=== PATIENT | female | born 1955 | race African-American/Black ===

== ENCOUNTER 2019-11-25 07:39 | Inpatient (IN) | payer MEDICAID ==
[~2019-11-25] VITALS: Ht 172.7 cm; Wt 100.5 kg
[2019-11-25] MEDS ORDERED: ONDANSETRON HCL 4MG/2ML INJ IV STA (08:16)
[2019-11-25] MEDS ORDERED: MORPHINE SULFATE 4 MG/ML CPJ (NOT FOR IM USE) IV STA (08:16)
[2019-11-25] MEDS ORDERED: SODIUM CHLORIDE 0.9% 1,000 ML IV ONE (08:16)
[2019-11-25] MEDS ORDERED: HYDRALAZINE 20MG/ML VIAL IV ONE (08:30)
[2019-11-25 09:03] LABS: BASOPHILS % 1.1 % (0.0-2.0); EOSINOPHILS % 0.8 % (0.0-5.0); HEMATOCRIT. 41.4 % (36.0-48.0); HEMOGLOBIN. 13.6 g/dL (12.0-16.0); LYMPHOCYTES % 26.3 % (20.0-50.0); MEAN CORPUSCULAR HEMOGLOBIN 28.7 pg (28.0-32.0); MEAN CORPUSCULAR VOLUME 87.9 fL (81.0-99.0); MEAN PLATELET VOLUME 8.8 fl (7.4-10.4); MONOCYTES % 3.5 % (2.0-8.0); NEUTROPHILS % 68.3 % (40.0-76.0); PLATELET 367 x1000/uL (130-400); RED BLOOD CELL COUNT 4.72 mill/uL (4.2-5.4); RED CELL DISTRIBUTION WIDTH 15.8 % (11.6-14.6)
[2019-11-25 09:09] LABS: CHLORIDE 113 mEq/L (98-107)
[2019-11-25 09:14] LABS: PARTIAL THROMBOPLASTIN TIME 23.6 sec (23.4-31.0); PROTHROMBIN TIME 10.6 sec (9.6-11.0)
[2019-11-25] MEDS ORDERED: CEFTRIAXONE 1 G PREMIX 50 ML IV ONE (09:30)
[2019-11-25] MEDS ORDERED: AZITHROMYCIN 500 MG in DEXT 5% WATER 250 ML IV ONE (09:30)
[2019-11-25 10:51] LABS: CLARITY URINE CLEAR (CLEAR); COLOR URINE YELLOW (YELLOW); KETONES URINE NEGATIVE (NEGATIVE); LEUKOCYTE ESTERASE URINE TRACE (NEGATIVE); NITRITE URINE NEGATIVE (NEGATIVE); OCCULT BLOOD URINE TRACE (NEGATIVE); PROTEIN URINE 1+ (NEGATIVE); SPECIFIC GRAVITY URINE 1.014 (1.005-1.030); UROBILINOGEN URINE 0.2 E.U./dL (0.2-1.0)
[2019-11-25 11:30] VITALS: BP 179/81
[2019-11-25 12:00] VITALS: BP 179/81
[2019-11-25] MEDS ORDERED: HYDR-3280 MT (13:46)
[2019-11-25] MEDS ORDERED: ATOR10TA69 MT (13:46)
[2019-11-25] MEDS ORDERED: FURO20TA4 MT (13:46)
[2019-11-25] MEDS: KETOROLAC 15MG/ML VIAL IV SCH ×3 (14:10→18:50)
[2019-11-25] MEDS ORDERED: ACETAMINOPHEN 325MG TABLET PO PRN ×2 (15:15)
[2019-11-25] MEDS ORDERED: GUAIFENESIN 200MG/10ML SUGAR FREE UDC PO PRN (15:15)
[2019-11-25] MEDS ORDERED: LORAZEPAM 0.5MG TABLET PO PRN (15:15)
[2019-11-25] MEDS ORDERED: DOCUSATE SODIUM 100MG CAPSULE PO PRN (15:15)
[2019-11-25] MEDS ORDERED: IPRATROPIUM/ALBUTEROL 0.5-3(2.5)MG/3ML NEB HHN PRN (15:15)
[2019-11-25 16:00] VITALS: BP 112/76
[2019-11-25] MEDS: AMLODIPINE 5MG TABLET PO SCH ×2 (16:05→20:48)
[2019-11-25] MEDS: CEFTRIAXONE 1,000 MG in DEXTROSE 5% WATER 50 ML IV SCH (16:05)
[2019-11-25] MEDS: HYDROCODONE/ACETAMINOPHEN 5/325MG TABLET PO PRN ×2 (16:35→20:59)
[2019-11-25] MEDS ORDERED: CEFTRIAXONE 1 G PREMIX 50 ML IV SCH (17:00)
[2019-11-25 20:00] VITALS: BP 208/79
[2019-11-25] MEDS: ATORVASTATIN CALCIUM 10MG TABLET PO SCH (20:06)
[2019-11-25] MEDS: ONDANSETRON HCL 4MG/2ML INJ IV PRN (20:36)
[2019-11-25] MEDS: CLONIDINE 0.1MG TABLET PO PRN (20:48)
[2019-11-26] VITALS: BP 131/71
[2019-11-26] MEDS: KETOROLAC 15MG/ML VIAL IV SCH ×4 (00:19→19:03)
[2019-11-26] MEDS: HYDROCODONE/ACETAMINOPHEN 5/325MG TABLET PO PRN ×3 (01:15→21:55)
[2019-11-26 04:00] VITALS: BP 125/71
[2019-11-26] MEDS: ONDANSETRON HCL 4MG/2ML INJ IV PRN (04:18)
[2019-11-26 06:28] LABS: BASOPHILS % 0.8 % (0.0-2.0); EOSINOPHILS % 0.3 % (0.0-5.0); HEMATOCRIT. 39.4 % (36.0-48.0); HEMOGLOBIN. 12.9 g/dL (12.0-16.0); LYMPHOCYTES % 42.1 % (20.0-50.0); MEAN CORPUSCULAR HEMOGLOBIN 28.8 pg (28.0-32.0); MEAN CORPUSCULAR VOLUME 88.4 fL (81.0-99.0); MEAN PLATELET VOLUME 9.4 fl (7.4-10.4); MONOCYTES % 8.3 % (2.0-8.0); NEUTROPHILS % 48.5 % (40.0-76.0); PLATELET 343 x1000/uL (130-400); RED BLOOD CELL COUNT 4.46 mill/uL (4.2-5.4); RED CELL DISTRIBUTION WIDTH 15.8 % (11.6-14.6)
[2019-11-26 08:00] VITALS: BP 119/67
[2019-11-26] MEDS: AMLODIPINE 5MG TABLET PO SCH ×2 (08:40→21:55)
[2019-11-26] MEDS ORDERED: LIDOCAINE HCL/EPINEPHRINE 1%-EPI 1:100,000 20 ML VIAL ONE (10:58)
[2019-11-26 12:00] VITALS: BP 128/68
[2019-11-26] MEDS ORDERED: PROPOFOL 200MG/20ML VIAL IV ONE (12:05)
[2019-11-26] MEDS ORDERED: FENTANYL CITRATE/PF 50MCG/ML 2ML VIAL ONE (12:05)
[2019-11-26] MEDS ORDERED: MIDAZOLAM HCL 2 MG/2 ML VIAL ONE (12:05)
[2019-11-26] MEDS ORDERED: ONDANSETRON HCL 4MG/2ML INJ ONE (12:42)
[2019-11-26] MEDS ORDERED: LIDOCAINE HCL 1% 20ML VIAL (Pyxis) INJ ONE (12:42)
[2019-11-26] MEDS ORDERED: METOCLOPRAMIDE HCL 10MG/2ML VIAL ONE (12:42)
[2019-11-26] MEDS ORDERED: DEXAMETHASONE 4MG/ML 1ML VIAL ONE (12:44)
[2019-11-26] MEDS: HYDROMORPHONE HCL/PF 2MG/ML CPJ IV PRN ×2 (13:45→16:38)
[2019-11-26] MEDS ORDERED: ONDANSETRON HCL 4MG/2ML INJ IV PRN (13:45)
[2019-11-26] MEDS ORDERED: MEPERIDINE HCL/PF 25MG/ML CPJ IV PRN (13:45)
[2019-11-26] MEDS: CLONIDINE 0.1MG TABLET PO PRN (15:24)
[2019-11-26 17:30] VITALS: BP 108/72
[2019-11-26] MEDS: AZITHROMYCIN 250 MG TABLET PO SCH (17:41)
[2019-11-26] MEDS: CEFTRIAXONE 1,000 MG in DEXTROSE 5% WATER 50 ML IV SCH (17:41)
[2019-11-26 20:00] VITALS: BP 117/63
[2019-11-26] MEDS: ATORVASTATIN CALCIUM 10MG TABLET PO SCH (21:55)
[2019-11-26] MEDS: GUAIFENESIN 600MG ER TABLET PO SCH (21:55)
[2019-11-27] VITALS: BP 105/56
[2019-11-27] MEDS: KETOROLAC 15MG/ML VIAL IV SCH ×3 (00:30→12:30)
[2019-11-27] MEDS: HYDROCODONE/ACETAMINOPHEN 5/325MG TABLET PO PRN ×2 (03:55→08:44)
[2019-11-27 04:00] VITALS: BP 118/51
[2019-11-27] MEDS: ALBUTEROL 6.7GM HFA INHALER ORI SCH ×2 (05:16)
[2019-11-27 08:00] VITALS: BP 140/74
[2019-11-27] MEDS: AMLODIPINE 5MG TABLET PO SCH (08:44)
[2019-11-27] MEDS: GUAIFENESIN 600MG ER TABLET PO SCH (08:44)
[2019-11-27] MEDS: AZITHROMYCIN 250 MG TABLET PO SCH (08:45)
[2019-11-27] MEDS ORDERED: HYDR-4001 MT (11:42)
[2019-11-27 12:00] VITALS: BP 113/59
[2019-11-27 13:33] VITALS: BP 113/59
[2019-11-27] MEDS ORDERED: ALBUTEROL (0.083%) 2.5MG/3ML NEB HHN SCH (18:00)
== END 2019-11-27 16:05 | disposition home or self-care (01) | DRG 465 ==
LOC: ER 08:00 → 7WST 09:54 → ENRESERV 10:47 → 6WST 11-27 11:45
PROVIDERS: ADMIT Internal Medicine; ATTEND Internal Medicine
PROC: 0TF78ZZ Fragmentation in Left Ureter, Via Natural or Artificial Opening Endoscopic (ICD-10-PCS; principal; 2019-11-26)
PROC: 0T778DZ Dilation of Left Ureter with Intraluminal Device, Via Natural or Artificial Opening Endoscopic (ICD-10-PCS; 2019-11-26)
PROC: BT1F1ZZ Fluoroscopy of Left Kidney, Ureter and Bladder using Low Osmolar Contrast (ICD-10-PCS; 2019-11-26)
DX: N13.2 Hydronephrosis with renal and ureteral calculous obstruction (principal); B19.20 Unspecified viral hepatitis C without hepatic coma; E11.9 Type 2 diabetes mellitus without complications; E87.2 Acidosis; I16.1 Hypertensive emergency; J44.0 Chronic obstructive pulmonary disease with (acute) lower respiratory infection; J44.1 Chronic obstructive pulmonary disease with (acute) exacerbation; I10 Essential (primary) hypertension; Z60.2 Problems related to living alone; J96.00 Acute respiratory failure, unspecified whether with hypoxia or hypercapnia; K57.90 Diverticulosis of intestine, part unspecified, without perforation or abscess without bleeding; K80.20 Calculus of gallbladder without cholecystitis without obstruction; N17.9 Acute kidney failure, unspecified; Z20.828 Contact with and (suspected) exposure to other viral communicable diseases; Z90.81 Acquired absence of spleen; Z79.84 Long term (current) use of oral hypoglycemic drugs; Z79.899 Other long term (current) drug therapy; Z03.818 Encounter for observation for suspected exposure to other biological agents ruled out; J18.1 Lobar pneumonia, unspecified organism
CPT/HCPCS: 36415; 71045; 74176; 74430; 80048; 80053; 81003; 83036; 83605; 83880; 84145; 84484; 85025; 87635; 93005; 93306; 99291; C1769; C2617; J0360; J0456; J0696; J1100; J1170; J1885; J2250; J2270; J2405; J2704; J2765; J3010; J3490; J7030; J7060

== ENCOUNTER 2020-08-09 11:18 | Emergency (ER) | payer MEDICAID ==
[~2020-08-09] VITALS: Ht 170.2 cm; Wt 91.0 kg
[~2020-08-09 11:18] MED LIST: ATOR10TA69 MT; COLC0.6C3 MT; HYDR-4001 MT; HYDR-4009 MT
[2020-08-09] MEDS ORDERED: ACETAMINOPHEN 325MG TABLET PO ONE ×2 (11:45→14:30)
[2020-08-09 14:15] VITALS: BP 169/82
== END 2020-08-09 16:07 | disposition home or self-care (01) ==
LOC: ER 11:18
DX: S63.502A Unspecified sprain of left wrist, initial encounter (principal); S80.01XA Contusion of right knee, initial encounter; J44.1 Chronic obstructive pulmonary disease with (acute) exacerbation; E11.9 Type 2 diabetes mellitus without complications; I10 Essential (primary) hypertension; Z98.890 Other specified postprocedural states; W01.0XXA Fall on same level from slipping, tripping and stumbling without subsequent striking against object, initial encounter; Y93.89 Activity, other specified; Y92.89 Other specified places as the place of occurrence of the external cause; Y99.8 Other external cause status
CPT/HCPCS: 73100; 73560; 93005; 99284; Z7610

== ENCOUNTER 2021-11-21 17:15 | Inpatient (IN) | payer MEDICAID ==
[~2021-11-21] VITALS: Ht 175.3 cm; Wt 107.5 kg
[2021-11-21 18:59] LABS: BASOPHILS % 0.9 % (0.0-2.0); EOSINOPHILS % 1.7 % (0.0-5.0); HEMATOCRIT. 40.7 % (36.0-48.0); HEMOGLOBIN. 13.1 g/dL (12.0-16.0); MEAN CORPUSCULAR HEMOGLOBIN 28.9 pg (28.0-32.0); MEAN CORPUSCULAR VOLUME 90.1 fL (81.0-99.0); MEAN PLATELET VOLUME 9.6 fl (7.4-10.4); MONOCYTES % 10.5 % (2.0-8.0); NEUTROPHILS % 37.9 % (40.0-76.0); PLATELET 429 x1000/uL (130-400); RED BLOOD CELL COUNT 4.51 mill/uL (4.2-5.4); RED CELL DISTRIBUTION WIDTH 15.3 % (11.6-14.6)
[2021-11-21 19:05] LABS: CHLORIDE 109 mEq/L (98-107)
[2021-11-21] MEDS ORDERED: SODIUM CHLORIDE 0.9% 1,000 ML IV ONE (20:30)
[2021-11-21 23:14] LABS: CLARITY URINE CLEAR (CLEAR); COLOR URINE YELLOW (YELLOW); KETONES URINE NEGATIVE (NEGATIVE); LEUKOCYTE ESTERASE URINE 2+ (NEGATIVE); NITRITE URINE NEGATIVE (NEGATIVE); OCCULT BLOOD URINE TRACE (NEGATIVE); PH URINE 5.5 (4.5-8.0); PROTEIN URINE 1+ (NEGATIVE); SPECIFIC GRAVITY URINE 1.016 (1.005-1.030)
[2021-11-22] MEDS: HYDROCODONE/ACETAMINOPHEN 5/325MG TABLET PO PRN ×2 (01:05→09:07)
[2021-11-22 08:35] VITALS: BP 146/90
[2021-11-22] MEDS ORDERED: amlodipine (09:02)
[2021-11-22] MEDS ORDERED: furosemide (09:02)
[2021-11-22 12:30] VITALS: BP 134/56
[2021-11-22] MEDS: AMLODIPINE 10MG TABLET PO SCH (13:45)
[2021-11-22] MEDS: SODIUM CHLORIDE 0.9% 1,000 ML IV SCH (13:45)
[2021-11-22 16:30] VITALS: BP 133/71
[2021-11-22] MEDS: HYDROCODONE/ACETAMINOPHEN 10/325MG TABLET PO PRN ×2 (16:46→21:20)
[2021-11-22] MEDS: ONDANSETRON HCL 4MG/2ML INJ IV PRN (17:18)
[2021-11-22 20:00] VITALS: BP 109/60
[2021-11-22] MEDS ORDERED: METHYLPREDNISOLONE SOD SUCC 125 MG/2 ML VIAL IV NR (20:15)
[2021-11-22] MEDS: ATORVASTATIN CALCIUM 40MG TABLET PO SCH (20:58)
[2021-11-22] MEDS: CEFTRIAXONE 1,000 MG in DEXTROSE 5% WATER 50 ML IV SCH (20:59)
[2021-11-23] VITALS: BP 133/69
[2021-11-23 04:00] VITALS: BP 129/78
[2021-11-23] MEDS: HYDROCODONE/ACETAMINOPHEN 10/325MG TABLET PO PRN ×3 (04:51→20:11)
[2021-11-23 07:53] LABS: BASOPHILS % 0.5 % (0.0-2.0); HEMOGLOBIN. 14.2 g/dL (12.0-16.0); MEAN CORPUSCULAR HEMOGLOBIN 29.2 pg (28.0-32.0); MEAN CORPUSCULAR VOLUME 90.5 fL (81.0-99.0); MONOCYTES % 1.1 % (2.0-8.0); NEUTROPHILS % 61.4 % (40.0-76.0); PLATELET 439 x1000/uL (130-400); RED BLOOD CELL COUNT 4.86 mill/uL (4.2-5.4); RED CELL DISTRIBUTION WIDTH 15.4 % (11.6-14.6)
[2021-11-23 08:30] VITALS: BP_SYST 105; BP_SYST 140; BP_SYST 144; BP_DIAS 75; BP_DIAS 79; BP_DIAS 88
[2021-11-23] MEDS: AMLODIPINE 10MG TABLET PO SCH (09:48)
[2021-11-23] MEDS: SODIUM CHLORIDE 0.9% 1,000 ML IV SCH (11:04)
[2021-11-23 11:45] VITALS: BP 139/86
[2021-11-23] MEDS: ONDANSETRON HCL 4MG/2ML INJ IV PRN (13:18)
[2021-11-23 16:22] VITALS: BP 100/64
[2021-11-23 20:00] VITALS: BP 115/69
[2021-11-23] MEDS: CEFTRIAXONE 1,000 MG in DEXTROSE 5% WATER 50 ML IV SCH (20:10)
[2021-11-23] MEDS: ATORVASTATIN CALCIUM 40MG TABLET PO SCH (20:10)
[2021-11-24] VITALS: BP 120/71
[2021-11-24] MEDS: HYDROCODONE/ACETAMINOPHEN 5/325MG TABLET PO PRN (01:02)
[2021-11-24 04:00] VITALS: BP 116/65
[2021-11-24] MEDS: SODIUM CHLORIDE 0.9% 1,000 ML IV SCH (05:13)
[2021-11-24 08:00] VITALS: BP 119/64
[2021-11-24 09:05] LABS: EOSINOPHILS % 0.2 % (0.0-5.0); HEMATOCRIT. 42.2 % (36.0-48.0); HEMOGLOBIN. 13.4 g/dL (12.0-16.0); LYMPHOCYTES % 40.9 % (20.0-50.0); MEAN CORPUSCULAR HEMOGLOBIN 28.9 pg (28.0-32.0); MEAN CORPUSCULAR VOLUME 90.9 fL (81.0-99.0); MEAN PLATELET VOLUME 10.2 fl (7.4-10.4); MONOCYTES % 7.7 % (2.0-8.0); NEUTROPHILS % 50.2 % (40.0-76.0); PLATELET 386 x1000/uL (130-400); RED BLOOD CELL COUNT 4.64 mill/uL (4.2-5.4); RED CELL DISTRIBUTION WIDTH 15.2 % (11.6-14.6)
[2021-11-24 09:17] LABS: CHLORIDE 107 mEq/L (98-107)
[2021-11-24] MEDS: AMLODIPINE 10MG TABLET PO SCH (09:39)
[2021-11-24] MEDS: HYDROCODONE/ACETAMINOPHEN 10/325MG TABLET PO PRN (09:39)
[2021-11-24 12:00] VITALS: BP 134/78
[2021-11-24 15:13] VITALS: BP_SYST 118; BP_SYST 122; BP_SYST 129; BP_DIAS 76; BP_DIAS 79; BP_DIAS 81
[2021-11-24] MEDS ORDERED: LEVO250T43 MT (15:16)
[2021-11-24 15:23] VITALS: BP 129/79
== END 2021-11-24 18:21 | disposition home or self-care (01) | DRG 48 ==
LOC: ER 17:15 → 6WST 21:26 → ENRESERV 11-22 07:17
PROVIDERS: ADMIT Internal Medicine; ATTEND Internal Medicine
DX: G51.0 Bell's palsy (principal); N17.9 Acute kidney failure, unspecified; H02.402 Unspecified ptosis of left eyelid; R55 Syncope and collapse; E83.52 Hypercalcemia; I10 Essential (primary) hypertension; E66.01 Morbid (severe) obesity due to excess calories; E87.5 Hyperkalemia; M10.9 Gout, unspecified; J44.9 Chronic obstructive pulmonary disease, unspecified; E11.9 Type 2 diabetes mellitus without complications; R29.6 Repeated falls; Z68.35 Body mass index [BMI] 35.0-35.9, adult; Z90.81 Acquired absence of spleen; Z85.038 Personal history of other malignant neoplasm of large intestine; Z85.6 Personal history of leukemia
CPT/HCPCS: 36415; 70551; 80048; 80053; 80061; 81003; 82330; 83880; 83970; 85025; 93005; 93306; 93880; 97162; 97166; 99285; J0696; J2405; J2930; J7030; J7060